=== PATIENT | female | born 1980 | race Caucasian/White ===

== ENCOUNTER 2018-11-07 18:47 | Emergency (ER) | payer SELFPAY ==
[~2018-11-07] VITALS: Ht 152.4 cm; Wt 68.0 kg
[2018-11-07 19:03] VITALS: BP 128/67
--- NOTE | 2018-11-07 19:13 | PHYS DOC ---
Past Medical History Past Medical History: No Pertinent History Past Surgical History: Tubal ligation Alcohol Use: None Drug Use: None Adult General Chief Complaint Chief Complaint: URINARY FREQUENCY HPI HPI Patient is a 38 year old [id number] female patient who presents to the ED today complaining of urinary frequency and concerned she could have an STD. She is requested to be treated for STDs. Denies any chance she is . Review of Systems Review of Systems Constitutional: Denies fever or chills [] Eyes: Denies change in visual acuity, redness, or eye pain [] HENT: Denies nasal congestion or sore throat [] Respiratory: Denies cough or shortness of breath [] Cardiovascular: No additional information not addressed in HPI [] GI: Denies abdominal pain, nausea, vomiting, bloody stools or diarrhea [] : Reports urinary frequency and concern for STDs. Denies dysuria or hematuria [] Musculoskeletal: Denies back pain or joint pain [] Integument: Denies rash or skin lesions [] Neurologic: Denies headache, focal weakness or sensory changes [] All other systems were reviewed and found to be within normal limits, except as documented in this note. Current Medications Current Medications Current Medications Medications (Trade) Dose Ordered Sig/Maria Ines Start Time Stop Time Status Last Admin Dose Admin Azithromycin (Zithromax) 1,000 mg 1X ONCE 11/07/18 19:15 11/07/18 19:16 UNV Ceftriaxone Sodium (Rocephin Im) 1 gm 1X ONCE 11/07/18 19:15 11/07/18 19:16 UNV Lidocaine HCl (Xylocaine-Mpf 1% 2ml Vial) 2 ml 1X ONCE 11/07/18 19:15 11/07/18 19:16 UNV Metronidazole (Flagyl) 2,000 mg 1X ONCE 11/07/18 19:15 11/07/18 19:16 UNV Physical Exam Physical Exam Constitutional: Well developed, well nourished, no acute distress, non-toxic appearance. [] HENT: Normocephalic, atraumatic, bilateral external ears normal, oropharynx moist, no oral exudates, nose normal. [] Eyes: PERRLA, EOMI, conjunctiva normal, no discharge. [] Neck: Normal range of motion, no tenderness, supple, no stridor. [] Cardiovascular:Heart rate regular rhythm, no murmur [] Lungs & Thorax: Bilateral breath sounds clear to auscultation [] Abdomen: Bowel sounds normal, soft, no tenderness, no masses, no pulsatile masses. [] Skin: Warm, dry, no erythema, no rash. [] Back: No tenderness, no CVA tenderness. [] Extremities: No tenderness, no cyanosis, no clubbing, ROM intact, no edema. [] Neurologic: Alert and oriented X 3, normal motor function, normal sensory function, no focal deficits noted. [] Psychologic: Affect normal, judgement normal, mood normal. [] Current Patient Data Vital Signs Vital Signs Date Time Temp Pulse Resp B/P (MAP) Pulse Ox O2 Delivery O2 Flow Rate FiO2 11/07/18 19:03 98.5 86 16 128/67 (87) 98 Room Air 98.5 Lab Values Laboratory Tests Test 11/07/18 19:00 Urine Collection Type Unknown Urine Color Yellow Urine Clarity Cloudy Urine pH 5.0 Urine Specific [place] >=1.030 Urine Protein Negative mg/dL (NEG-TRACE) Urine Glucose (UA) Negative mg/dL (NEG) Urine Ketones (Stick) Negative mg/dL (NEG) Urine Blood Negative (NEG) Urine Nitrite Negative (NEG) Urine Bilirubin Negative (NEG) Urine Urobilinogen Dipstick 0.2 mg/dL (0.2 mg/dL) Urine Leukocyte Esterase Negative (NEG) Urine RBC 0 /HPF (0-2) Urine WBC 0 /HPF (0-4) Urine Squamous Epithelial Cells Mod /LPF Urine Amorphous Sediment Present /HPF Urine Bacteria Mod /HPF (0-FEW) Urine Mucus Mod /LPF EKG EKG [] Radiology/Procedures Radiology/Procedures [] Course & Med Decision Making Course & Med Decision Making Pertinent Labs and Imaging studies reviewed. (See chart for details) This is a 12-year-old female patient presenting to the ED today with dysuria and concern she could have an STD, she is requesting treatment. She was given Rocephin , azithromycin, Flagyl. STD education provided. Discharged to home Dragon Disclaimer Dragon Disclaimer This electronic medical record was generated, in whole or in part, using a voice recognition dictation system. Departure Departure Impression: Primary Impression: Concern about STD in female without diagnosis Disposition: HOME, SELF-CARE Condition: STABLE Referrals: NO PCP (PCP) Follow-up with your doctor in 1-2 weeks Patient Instructions: Dysuria-Brief, Sexually Transmitted Diseases-SportsMed Additional Instructions: You were treated for sexually transmitted diseases in the emergency room. Do not have any intercourse for one week. Use protection at all times. Let your partners know you were treated for STDs and ask them to seek treatment too. NICA ACEVEDO APRN Nov 07, 2018 19:13
[2018-11-07 19:15] LABS: BILIRUBIN,URINE NEGATIVE (NEG); CLARITY,URINE CLOUDY; COLOR,URINE YELLOW; NITRITE,URINE NEGATIVE (NEG); PROTEIN,URINE NEGATIVE (NEG-TRACE); UROBILINOGEN,URINE 0.2 mg/dL (0.2 mg/dL)
[2018-11-07] MEDS ORDERED: metroNIDAZOLE 500 MG TABLET PO ONE (19:15)
[2018-11-07] MEDS ORDERED: AZITHROMYCIN 250 MG TABLET. PO ONE (19:15)
[2018-11-07] MEDS ORDERED: LIDOCAINE 1% PF 2 ML VIAL. INJ ONE (19:15)
[2018-11-07] MEDS ORDERED: cefTRIAXone IM 250 MG VIAL IM ONE (19:15)
[2018-11-07] MEDS ORDERED: cefTRIAXone IM 1 GM VIAL IM ONE (19:15)
[2018-11-07 19:22] LABS: AMORPHOUS SEDIMENT,UR PRESENT /HPF; BACTERIA,URINE MOD /HPF (0-FEW); RBC,URINE 0 /HPF (0-2); SQUAMOUS EPITHELIAL CELL,UR MOD /LPF; WBC,URINE 0 /HPF (0-4)
[2018-11-07] MEDS ORDERED: LIDOCAINE 1% PF 2 ML VIAL. ONE (19:30)
[2018-11-07] MEDS ORDERED: cefTRIAXone IV Push 1 GM VIAL. IVP ONE (19:30)
== END 2018-11-07 19:43 | disposition home or self-care (01) ==
LOC: ER 18:47
DX: R35.0 Frequency of micturition (principal); Z20.2 Contact with and (suspected) exposure to infections with a predominantly sexual mode of transmission; Z98.51 Tubal ligation status
CPT/HCPCS: 81001; 87491; 87591; 96372; 99284; J0696; Q0144

== ENCOUNTER 2019-02-18 10:30 | Emergency (ER) | payer SELFPAY ==
[~2019-02-18] VITALS: Ht 152.4 cm; Wt 73.7 kg
[2019-02-18 10:46] VITALS: BP 122/76
[2019-02-18 10:57] LABS: BILIRUBIN,URINE NEGATIVE (NEG); CLARITY,URINE CLEAR; COLOR,URINE YELLOW; NITRITE,URINE NEGATIVE (NEG); PH,URINE 7.5; PROTEIN,URINE NEGATIVE (NEG-TRACE); UROBILINOGEN,URINE 0.2 mg/dL (0.2 mg/dL)
[2019-02-18 11:05] LABS: RBC,URINE 0 /HPF (0-2); SQUAMOUS EPITHELIAL CELL,UR MOD /LPF
[2019-02-18 11:06] LABS: BACTERIA,URINE FEW /HPF (0-FEW)
[2019-02-18] MEDS ORDERED: PHEN100T82 PO (11:41)
[2019-02-18] MEDS ORDERED: CEPH500C PO (11:41)
--- NOTE | 2019-02-18 11:41 | PHYS DOC ---
Past Medical History Past Medical History: No Pertinent History Past Surgical History: Appendectomy, Tubal ligation Alcohol Use: None Drug Use: Marijuana Adult General Chief Complaint Chief Complaint: URINARY FREQUENCY HPI HPI Patient is a 38 year old female who presents to the emergency Department today with complaints of increased urinary frequency and pain with urination for the last 2 days. She denies any abdominal pain, lower back pain, nausea, vomiting, diarrhea, or fever. Patient states she has had symptoms like this with previous urinary tract infections. She denies any hematuria or irregular vaginal discharge. Patient currently denies any pain. Review of Systems Review of Systems Constitutional: Denies fever or chills [] GI: Denies abdominal pain, nausea, vomiting, or diarrhea [] : See history of present illness Musculoskeletal: Denies back pain Integument: Denies rash or skin lesions [] Neurologic: Denies headache Complete systems were reviewed and found to be within normal limits, except as documented in this note. Allergies Allergies Allergies Coded Allergies Type Severity Reaction Last Updated Verified No Known Drug Allergies 11/07/18 No Physical Exam Physical Exam Constitutional: Well developed, well nourished, no acute distress, non-toxic appearance. [] HENT: Normocephalic, atraumatic, bilateral external ears normal, nose normal. [] Eyes: PERRLA, EOMI, conjunctiva normal, no discharge. [] Neck: Normal range of motion, no stridor. [] Lungs & Thorax: Respirations even and unlabored, no retractions, no respiratory distress Abdomen: soft, no tenderness, no masses, no pulsatile masses. [] Skin: Warm, dry, no erythema, no rash. [] Back: No CVA tenderness. [] Extremities: No cyanosis, no clubbing, ROM intact, no edema. [] Neurologic: Alert and oriented X 3, no focal deficits noted. [] Psychologic: Affect normal, judgement normal, mood normal. [] Current Patient Data Vital Signs Vital Signs Date Time Temp Pulse Resp B/P (MAP) Pulse Ox O2 Delivery O2 Flow Rate FiO2 02/18/19 10:46 98.4 80 16 122/76 (91) 99 Room Air 98.4 Lab Values Laboratory Tests Test 02/18/19 10:34 Urine Collection Type Unknown Urine Color Yellow Urine Clarity Clear Urine pH 7.5 Urine Specific [place] 1.015 Urine Protein Negative mg/dL (NEG-TRACE) Urine Glucose (UA) Negative mg/dL (NEG) Urine Ketones (Stick) Negative mg/dL (NEG) Urine Blood Negative (NEG) Urine Nitrite Negative (NEG) Urine Bilirubin Negative (NEG) Urine Urobilinogen Dipstick 0.2 mg/dL (0.2 mg/dL) Urine Leukocyte Esterase Small (NEG) Urine RBC 0 /HPF (0-2) Urine WBC 5-10 /HPF (0-4) Urine Squamous Epithelial Cells Mod /LPF Urine Bacteria Few /HPF (0-FEW) Urine Mucus Slight /LPF EKG EKG [] Radiology/Procedures Radiology/Procedures [] Course & Med Decision Making Course & Med Decision Making Pertinent Labs and Imaging studies reviewed. (See chart for details) [] Dragon Disclaimer Dragon Disclaimer This electronic medical record was generated, in whole or in part, using a voice recognition dictation system. Departure Departure Impression: Primary Impression: UTI (urinary tract infection) Additional Impression: Dysuria Disposition: HOME, SELF-CARE Condition: STABLE Referrals: NO PCP (PCP) Patient Instructions: Urinary Tract Infection, [id number] Additional Instructions: Fill prescription(s) and use as directed. Avoid bladder irritants such as caffeine, carbonation, and spicy foods. Increase clear fluids. Follow up with your primary care doctor if symptoms persist, return to the ER if symptoms worsen. Scripts Phenazopyridine Hcl (PYRIDIUM) 100 Mg Tablet 100 MG PO TID PRN for BLADDER SPASM for 4 Days, #12 TAB 0 Refills Prov: VINI IRIZARRY AERONAUTICAL INSPECTOR 02/18/19 Cephalexin (CEPHALEXIN) 500 Mg Capsule 1 CAP PO BID for 7 Days, #14 CAP 0 Refills Prov: VINI IRIZARRY AERONAUTICAL INSPECTOR 02/18/19 Problem Qualifiers Primary Impression: UTI (urinary tract infection) Urinary tract infection type: site unspecified Hematuria presence: without hematuria Qualified Codes: N39.0 - Urinary tract infection, site not specified VINI IRIZARRY AERONAUTICAL INSPECTOR Feb 18, 2019 11:41
== END 2019-02-18 11:57 | disposition home or self-care (01) ==
LOC: ER 10:30
DX: N39.0 Urinary tract infection, site not specified (principal); Z90.89 Acquired absence of other organs; Z98.51 Tubal ligation status
CPT/HCPCS: 81001; 87086; 99284

== ENCOUNTER 2019-06-09 19:34 | Emergency (ER) | payer SELFPAY ==
[~2019-06-09 19:34] MED LIST: CEPH500C PO; PHEN100T82 PO
== END 2019-06-09 19:42 | disposition left against medical advice (07) ==
LOC: ER 19:34
DX: R05 Cough (principal); Z53.21 Procedure and treatment not carried out due to patient leaving prior to being seen by health care provider

== ENCOUNTER 2019-06-12 14:25 | Emergency (ER) | payer SELFPAY ==
[~2019-06-12] VITALS: Ht 152.4 cm; Wt 73.5 kg
[2019-06-12] MEDS: BENZONATATE 100 MG CAPSULE. PO ONE (15:52)
[2019-06-12] MEDS: predniSONE 10 MG TABLET PO ONE (15:53)
[2019-06-12 15:56] LABS: INFLUENZA A PATIENT NEGATIVE (NEGATIVE); INFLUENZA B PATIENT NEGATIVE (NEGATIVE)
--- NOTE | 2019-06-12 16:00 | RAD ---
CHEST PA LATERAL History: Cough Comparison: None. Findings: Frontal and lateral views of chest were obtained. The cardiomediastinal silhouette is normal. Pulmonary vasculature is normal. Calcified granuloma or calcific plaque involving the right upper lung field noted. No infiltrate. No pleural effusion or pneumothorax is seen. There is no acute bone abnormality. IMPRESSION: No acute cardiopulmonary process. Electronically signed by: Mele Medina MD (06/12/2019 3:57 PM) [facility]
[2019-06-12 16:15] VITALS: BP 118/77
[2019-06-12] MEDS: IPRATRPIUM/ALBUTEROL 0.5/2.5MG 3 ML NEBU. NEB ONE (16:23)
[2019-06-12] MEDS ORDERED: BENZ100C PO (16:47)
[2019-06-12] MEDS ORDERED: ALBU2.5V8 IH (16:47)
[2019-06-12] MEDS ORDERED: PRED50TA PO (16:47)
--- NOTE | 2019-06-12 16:47 | PHYS DOC ---
Past Medical History Past Medical History: No Pertinent History Past Surgical History: Appendectomy, Tubal ligation Alcohol Use: None Drug Use: Marijuana Adult General Chief Complaint Chief Complaint: SHORTNESS OF BREATH HPI HPI Patient is a 38 year old female with no significant medical history who presents to the ED today complaining of subjective fevers, body aches, chills, headaches, shortness of breath, symptoms began 4 days ago. She reports she was in the ED on Sunday and decided not to be seen Review of Systems Review of Systems Constitutional: Reports body aches chills and fever Eyes: Denies change in visual acuity, redness, or eye pain [] HENT: Denies nasal congestion or sore throat [] Respiratory: Reports cough and shortness of breath [] Cardiovascular: No additional information not addressed in HPI [] GI: Denies abdominal pain, nausea, vomiting, bloody stools or diarrhea [] : Denies dysuria or hematuria [] Musculoskeletal: Denies back pain or joint pain [] Integument: Denies rash or skin lesions [] Neurologic: Denies headache, focal weakness or sensory changes [] All other systems were reviewed and found to be within normal limits, except as documented in this note. Current Medications Current Medications Current Medications Medications (Trade) Dose Ordered Sig/Maria Ines Start Time Stop Time Status Last Admin Dose Admin Albuterol/ Ipratropium (Duoneb) 3 ml 1X ONCE 06/12/19 15:30 06/12/19 15:35 DC 06/12/19 16:23 3 ML Benzonatate (Tessalon Perle) 100 mg 1X ONCE 06/12/19 15:30 06/12/19 15:35 DC 06/12/19 15:52 100 MG Prednisone (Prednisone) 50 mg 1X ONCE 06/12/19 15:30 06/12/19 15:35 DC 06/12/19 15:53 50 MG Allergies Allergies Allergies Coded Allergies Type Severity Reaction Last Updated Verified No Known Drug Allergies 11/07/18 No Physical Exam Physical Exam Constitutional: Well developed, well nourished, no acute distress, non-toxic appearance. [] HENT: Normocephalic, atraumatic, bilateral external ears normal, oropharynx moist, no oral exudates, nose normal. [] Eyes: PERRLA, EOMI, conjunctiva normal, no discharge. [] Neck: Normal range of motion, no tenderness, supple, no stridor. [] Cardiovascular:Heart rate regular rhythm, no murmur [] Lungs & Thorax: Bilateral breath sounds clear to auscultation [] Abdomen: Bowel sounds normal, soft, no tenderness, no masses, no pulsatile masses. [] Skin: Warm, dry, no erythema, no rash. [] Back: No tenderness, no CVA tenderness. [] Extremities: No tenderness, no cyanosis, no clubbing, ROM intact, no edema. [] Neurologic: Alert and oriented X 3, normal motor function, normal sensory function, no focal deficits noted. [] Psychologic: Affect normal, judgement normal, mood normal. [] Current Patient Data Vital Signs Vital Signs Date Time Temp Pulse Resp B/P (MAP) Pulse Ox O2 Delivery O2 Flow Rate FiO2 06/12/19 16:23 97 Room Air 06/12/19 15:25 98.5 98 16 154/83 (106) 98.5 Lab Values Laboratory Tests Test 06/12/19 15:23 Influenza Type A Antigen Negative (NEGATIVE) Influenza Type B Antigen Negative (NEGATIVE) EKG EKG [] Radiology/Procedures Radiology/Procedures []PROCEDURE: CHEST PA & LATERAL CHEST PA LATERAL History: Cough Comparison: None. Findings: Frontal and lateral views of chest were obtained. The cardiomediastinal silhouette is normal. Pulmonary vasculature is normal. Calcified granuloma or calcific plaque involving the right upper lung field noted. No infiltrate. No pleural effusion or pneumothorax is seen. There is no acute bone abnormality. IMPRESSION: No acute cardiopulmonary process. Electronically signed by: Jojo Kiser MD (06/12/2019 3:57 PM) [facility] DICTATED and SIGNED BY: JOJO KISER MD DATE: 06/12/19 1557 Course & Med Decision Making Course & Med Decision Making Pertinent Labs and Imaging studies reviewed. (See chart for details) This is a 38-year-old. Patient presenting to the ED today with cough, body aches, chills, shortness of breath, symptoms began on Sunday. Patient is afebrile, lungs are clear, O2 sats of 97% on room air. Influenza test is negative. Symptoms are likely viral. Supportive care measures recommended. Discharged to home. Dragon Disclaimer Dragon Disclaimer This electronic medical record was generated, in whole or in part, using a voice recognition dictation system. Departure Departure Impression: Primary Impression: Acute bronchitis Additional Impression: Viral illness Disposition: 01 HOME, SELF-CARE Condition: STABLE Referrals: NO PCP (PCP) follow up with a doctor from the list provided in 1 week Patient Instructions: Acute Bronchitis, [id number], Upper Respiratory Infection, Adult, [id number] Additional Instructions: You were evaluated in the emergency room with viral type symptoms. Use the prescribed medications as ordered. Follow-up with your own doctor in 1-2 weeks. Scripts Benzonatate (TESSALON PERLE) 100 Mg Capsule 1 CAP PO TID, #30 CAP Prov: NICA ACEVEDO APRN 06/12/19 Albuterol Sulfate (Proair Hfa) 8.5 Gm Hfa.aer.ad 2 PUFF IH PRN Q4-6HRS PRN for wheezing for 21 Days, #1 INHALER 0 Refills Prov: NICA ACEVEDO APRN 06/12/19 Prednisone (PREDNISONE) 50 Mg Tablet 1 TAB PO DAILY, #5 TAB Prov: NICA ACEVEDO APRN 06/12/19 Problem Qualifiers Primary Impression: Acute bronchitis Bronchitis organism: unspecified organism Qualified Codes: J20.9 - Acute bronchitis, unspecified NICA ACEVEDO APRN Jun 12, 2019 16:47
== END 2019-06-12 16:55 | disposition home or self-care (01) ==
LOC: ER 14:25
DX: J20.9 Acute bronchitis, unspecified (principal); R05 Cough; B34.9 Viral infection, unspecified; F12.90 Cannabis use, unspecified, uncomplicated; F10.10 Alcohol abuse, uncomplicated; Z98.51 Tubal ligation status; Z90.89 Acquired absence of other organs
CPT/HCPCS: 71046; 87804; 94640; 99285; J7512; J7620

== ENCOUNTER 2020-10-13 07:44 | Emergency (ER) | payer MEDICAID ==
[~2020-10-13] VITALS: Ht 152.4 cm; Wt 73.6 kg
[~2020-10-13 07:44] MED LIST changes: +ALBU2.5V8 IH; +BENZ100C PO; +PRED50TA PO
[2020-10-13 08:00] VITALS: BP 120/64
[2020-10-13] MEDS ORDERED: FLUORESCEIN OPHTH TEST STRIP. ONE (08:12)
[2020-10-13] MEDS ORDERED: TETRACAINE 0.5% OPHTH SOLUTION 4ML BOTTLE. ONE (08:12)
[2020-10-13] MEDS ORDERED: TOBR5DRO6 OD (08:28)
[2020-10-13] MEDS ORDERED: GENT3.5O9 OD (08:28)
--- NOTE | 2020-10-13 08:28 | PHYS DOC ---
Past Medical History Past Medical History: No Pertinent History Past Surgical History: Appendectomy, Tubal ligation Smoking Status: Never Smoker Alcohol Use: None Drug Use: Marijuana General Adult EDM: Chief Complaint: EYE PROBLEMS HPI: HPI: Patient is a 40 year old female who presented to ER for evaluation of right eye pain. Patient said she was accidentally hit by her brother's elbow yesterday while they were in the kitchen. Patient complained of eye pain with light, denies any pain in the face area. Patient is not up-to-date her vaccination status. Review of Systems: Review of Systems: Constitutional: Denies fever or chills. [] Eyes: Positive for right eye pain HENT: Denies nasal congestion or sore throat. [] Respiratory: Denies cough or shortness of breath. [] Cardiovascular: Denies chest pain or edema. [] GI: Denies abdominal pain, nausea, vomiting, bloody stools or diarrhea. [] : Denies dysuria. [] Musculoskeletal: Denies back pain or joint pain. [] Integument: Denies rash. [] Neurologic: Denies headache, focal weakness or sensory changes. [] Endocrine: Denies polyuria or polydipsia. [] Lymphatic: Denies swollen glands. [] Psychiatric: Denies depression or anxiety. [] Heart Score: C/O Chest Pain: N/A Risk Factors: Risk Factors: DM, Current or recent (<one month) smoker, HTN, HLP, family history of CAD, obesity. Risk Scores: Score 0 - 3: 2.5% MACE over next 6 weeks - Discharge Home Score 4 - 6: 20.3% MACE over next 6 weeks - Admit for Clinical Observation Score 7 - 10: 72.7% MACE over next 6 weeks - Early Invasive Strategies Current Medications: Current Medications Medications (Trade) Dose Ordered Sig/Maria Ines Start Time Stop Time Status Last Admin Dose Admin Diphtheria/ Tetanus/Acell Pertussis (ADACEL TDap SYRINGE) 0.5 ml ONCE ONCE 10/13/20 08:30 10/13/20 08:31 UNV Fluorescein Sodium (Ful-Christi) 1 strip STK-MED ONCE 10/13/20 08:12 10/13/20 08:13 DC Tetracaine HCl (Tetracaine) 40 drop STK-MED ONCE 10/13/20 08:12 10/13/20 08:13 DC Allergies: Allergies: Allergies Coded Allergies Type Severity Reaction Last Updated Verified No Known Drug Allergies 11/07/18 No Physical Exam: PE: Constitutional: Well developed, well nourished, no acute distress, non-toxic appearance. [] HENT: Normocephalic, atraumatic, bilateral external ears normal, oropharynx moist, no oral exudates, nose normal. [] Eyes: PERRLA, EOMI, right conjunctival injection, right cornea with abrasion at the 11 and 12 o'clock position with dye uptake negative Chasidy's test. Skin: Warm, dry, no erythema, no rash. [] Back: No tenderness, no CVA tenderness. [] Extremities: No tenderness, no cyanosis, no clubbing, ROM intact, no edema. [] Neurologic: Alert and oriented X 3, normal motor function, normal sensory function, no focal deficits noted. [] Psychologic: Affect normal, judgement normal, mood normal. [] Current Patient Data: Vital Signs: Vital Signs Date Time Temp Pulse Resp B/P (MAP) Pulse Ox O2 Delivery O2 Flow Rate FiO2 10/13/20 08:00 98.3 63 16 120/64 (82) 97 Room Air 98.3 EKG: EKG: [] Radiology/Procedures: Radiology/Procedures: [] Course & Med Decision Making: Course & Med Decision Making Pertinent Labs and Imaging studies reviewed. (See chart for details) Patient is a 40-year-old female who presented to ER for evaluation of right eye pain. Patient had right corneal abrasion, no evidence of open globe injury. Patient was discharged home with prescription for antibiotic eyedrops and antibiotic ointment. Patient was given tetanus vaccination booster. Patient will be discharged home, she will need to follow-up with eye doctor for reevaluation in a couple days. Patient is amenable to plan of care for [facility] Disclaimer: Jose Disclaimer: This electronic medical record was generated, in whole or in part, using a voice recognition dictation system. Departure Departure Impression: Primary Impression: Right corneal abrasion Disposition: 01 HOME / SELF CARE / HOMELESS Condition: IMPROVED Referrals: NO PCP (PCP) Please call this EYE DOCTOR BELOW FOR FOLLOW UP IN 1-[address] Juan Antonio Prasad [address] [id number] Patient Instructions: Eye - Corneal Abrasion, VIS, Tetanus, Diphtheria (Td); Tetanus, Diphtheria, Pertussis (Tdap) - CDC Additional Instructions: Thank you for visiting our Emergency Department. We appreciate you trusting us with your care. If any additional problems come up don't hesitate to return to visit us. Please follow up with your primary care provider so they can plan additional care if needed and know about the problem that you had. If symptoms worsen come back to the Emergency Department. Any concerning symptoms that start such as chest pain, shortness of air, weakness or numbness on one side of the body, running high fevers or any other concerning symptoms return to the ER. Scripts Gentamicin Sulfate (GENTAMICIN SULFATE 0.3% OPHTH OINT) 3.5 Gm Oint...g. 1 MAGNOLIA OD TID for 7 Days, #1 EACH Prov: ADDIS GARCIA DO 10/13/20 Tobramycin Ophth (TOBRAMYCIN OPHTH DROPS) 5 Ml Drops 2 DROP OD QID for 7 Days, #5 ML 0 Refills Prov: ADDIS GARCIA DO 10/13/20 ADDIS GARCIA DO October 13, 2020 08:28
[2020-10-13] MEDS ORDERED: DIPH,PERTUSS(ACELL),TET VAC/PF 0.5 ML SYRINGE. VAX IM ONE (08:30)
== END 2020-10-13 08:33 | disposition home or self-care (01) ==
LOC: ER 07:44
DX: S05.01XA Injury of conjunctiva and corneal abrasion without foreign body, right eye, initial encounter (principal); W51.XXXA Accidental striking against or bumped into by another person, initial encounter; Y93.89 Activity, other specified; Y92.89 Other specified places as the place of occurrence of the external cause; Y99.8 Other external cause status
CPT/HCPCS: 90471; 90715; 99283

== ENCOUNTER 2020-11-02 14:05 | Emergency (ER) | payer MEDICAID ==
[~2020-11-02] VITALS: Ht 152.4 cm; Wt 73.1 kg
[~2020-11-02 14:05] MED LIST changes: +GENT3.5O9 OD; +TOBR5DRO6 OD
[2020-11-02] MEDS ORDERED: FAMOTIDINE 20 MG/2 ML VIAL IVP ONE (14:30)
[2020-11-02] MEDS ORDERED: IV NORMAL SALINE 1000ML BAG 1,000 ML IV SCH (14:30)
[2020-11-02] MEDS ORDERED: ONDANSETRON PF 4 MG/2 ML VIAL. IVP ONE (14:30)
--- NOTE | 2020-11-02 14:35 | PHYS DOC ---
Past Medical History Past Medical History: No Pertinent History Past Surgical History: Appendectomy, Tubal ligation Smoking Status: Never Smoker Alcohol Use: None Drug Use: Marijuana General Adult EDM: Chief Complaint: POST-OP PROBLEM HPI: HPI: Patient is a 40 year old female who presents with nausea, vomiting, diarrhea, shortness of breath, palpitations with exertion and belching and a pressure type epigastric pain after having a cholecystectomy on October 28 at [facility]. She states she does not remember the doctor's name. She denies any pain just discomfort. She has a history of an appendectomy. Review of Systems: Review of Systems: Constitutional: Denies fever or chills. [] Eyes: Denies change in visual acuity. [] HENT: Denies nasal congestion or sore throat. [] Respiratory: Denies cough or +shortness of breath with exertion. [] Cardiovascular: Denies chest pain or edema. +Palpitations[] GI: Denies abdominal pain, +nausea, +vomiting, denies bloody stools or +diarrhea. [] : Denies dysuria. [] Musculoskeletal: Denies back pain or joint pain. [] Integument: Denies rash. [] Neurologic: Denies headache, focal weakness or sensory changes. [] Endocrine: Denies polyuria or polydipsia. [] Lymphatic: Denies swollen glands. [] Psychiatric: Denies depression or anxiety. [] Heart Score: C/O Chest Pain: No Risk Factors: Risk Factors: DM, Current or recent (<one month) smoker, HTN, HLP, family history of CAD, obesity. Risk Scores: Score 0 - 3: 2.5% MACE over next 6 weeks - Discharge Home Score 4 - 6: 20.3% MACE over next 6 weeks - Admit for Clinical Observation Score 7 - 10: 72.7% MACE over next 6 weeks - Early Invasive Strategies Allergies: Allergies: Allergies Coded Allergies Type Severity Reaction Last Updated Verified No Known Drug Allergies 11/07/18 No Physical Exam: PE: Constitutional: Well developed, well nourished, no acute distress, non-toxic appearance. [] HENT: Normocephalic, atraumatic, bilateral external ears normal, oropharynx moist, no oral exudates, nose normal. [] Eyes: PERRLA, EOMI, conjunctiva normal, no discharge. [] Neck: Normal range of motion, no tenderness, supple, no stridor. [] Cardiovascular:Heart rate regular rhythm, no murmur [] Lungs & Thorax: Bilateral breath sounds clear to auscultation [] Abdomen: Bowel sounds normal, soft, no tenderness, no masses, no pulsatile masses. [] Skin: Warm, dry, no erythema, no rash. 4 glued incisions to abdomen[] Back: No tenderness, no CVA tenderness. [] Extremities: No tenderness, no cyanosis, no clubbing, ROM intact, no edema. [] Neurologic: Alert and oriented X 3, normal motor function, normal sensory function, no focal deficits noted. [] Psychologic: Affect normal, judgement normal, mood normal. [] EKG: EK and read by Dr. Young as sinus rhythm with ventricular premature complexes. No STEMI. Radiology/Procedures: Radiology/Procedures: [] Impression: [facility] [address] [place], [place] [id number] IMAGING REPORT Signed PATIENT: LETY FERNANDEZ ACCOUNT: [id number] : 1980 LOCATION: ER AGE: 40 SEX: F EXAM STATUS: REG ER ORD. PHYSICIAN: RAMIRO DELA CRUZ APRN REASON: post operative pain, vomiting and diarrhea PROCEDURE: CT ANGIO CHEST W ABD PEL W/ EXAM: CT CHEST, ABDOMEN, AND PELVIS WITH CONTRAST INDICATION: Postoperative pain after cholecystectomy, shortness of breath, vomiting and diarrhea COMPARISON: None TECHNIQUE: Helical CT imaging performed of the chest, abdomen and pelvis after administration of 100 mL Omnipaque 350 intravenous contrast. Chest port was performed in angiographic phase per PE protocol with coronal and sagittal MIP reformats. Sagittal and coronal reformats of the abdomen and pelvis were obtained. One or more of the following individualized dose reduction techniques were utilized for this examination: 1. Automated exposure control 2. Adjustment of the mA and/or kV according to patient size 3. Use of iterative reconstruction technique. FINDINGS: CHEST: Pulmonary arteries: Contrast bolus is adequate. There is no acute pulmonary embolism. Thyroid gland and thoracic inlet: Normal. Heart and great vessels: Heart is normal in size. No pericardial effusion. The thoracic aorta is normal. Mediastinum and lorenzo: No lymphadenopathy. Lungs and pleura: There is a 4 mm subpleural nodule in the left apex. The lungs are otherwise clear. No pleural effusion. Chest wall and axillae: No axillary lymphadenopathy. Bones: There is a sclerotic lesion in the right anterior second rib, likely a bone island. ABDOMEN AND PELVIS: Liver: Normal. Gallbladder/Biliary Tree: Gallbladder surgically absent. There is trace fluid in the gallbladder fossa, likely postoperative. No fluid collection. The bile ducts are normal. Pancreas: Normal. Spleen: Normal. Adrenal Glands: Normal. Kidneys/Ureters/Bladder: Kidneys are normal size and enhancement. There is a subcentimeter hypodensity in inferior right renal pole, too small to characterize. No hydronephrosis. Ureters are normal. The bladder is decompressed. Reproductive Organs: Uterus is anteverted. There is a dominant right ovarian follicle. Stomach, small bowel, and colon: The stomach and small bowel are normal. Colon is normal. The appendix is not visualized but there is no inflammation in the right lower quadrant. Vasculature: Abdominal aorta is normal in caliber. Lymph Nodes: There is no lymphadenopathy. Peritoneum and retroperitoneum: No ascites or free air. Bones: No acute osseous abnormality in the abdomen and pelvis. Probable bone island in the right posterior acetabulum. IMPRESSION: 1. No acute pulmonary embolism or other acute abnormality in the chest. 2. Surgical changes of cholecystectomy. No evidence of complication or other acute abnormality in the abdomen and pelvis. 3. 4 mm nodule in the left apex. In a low risk patient, no follow-up indicated. In a high risk patient, optional twelve-month follow-up CT could be obtained to ensure stability per Fleischner Society guidelines. Electronically signed by: Josephine Jj MD (11/02/2020 3:22 PM) [id number] DICTATED and SIGNED BY: JOSEPHINE JJ MD DATE: 11/02/20 [id number] 0 Course & Med Decision Making: Course & Med Decision Making Pertinent Labs and Imaging studies reviewed. (See chart for details) See HPI. Alert and oriented x4. Ambulatory with a steady gait. Speaks in full clear sentences. Surgical laparoscopic incisions are glued together and there is no signs of infection. There is no drainage from the sites. Abdomen is soft and nontender. Skin pink warm and dry. Afebrile. Lungs are clear to auscultation all lobes. States she has been having Sprite and drinking broths. Jose Disclaimer: Jose Disclaimer: This electronic medical record was generated, in whole or in part, using a voice recognition dictation system. Departure Departure Impression: Primary Impression: Post-operative nausea and vomiting Additional Impressions: Palpitation Exertional dyspnea Disposition: HOME / SELF CARE / HOMELESS Condition: STABLE Referrals: NO PCP (PCP) Patient Instructions: Nausea and Vomiting, Palpitations Additional Instructions: Follow-up with your surgeon as soon as possible. Drink plenty of fluids. Take medication as prescribed. Scripts Ondansetron (ONDANSETRON ODT) 4 Mg Tab.rapdis 1 TAB PO PRN Q6-8HRS, #16 TAB Prov: RAMIRO DELA CRUZ APRN 11/02/20 RAMIRO DELA CRUZ APRN Nov 02, 2020 14:35
--- NOTE | 2020-11-02 14:40 | EKG ---
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
[2020-11-02 14:41] LABS: BASO % 0 % (0-3); EOS # 0.6 x10^3/uL (0.0-0.7); EOS % 5 % (0-3); HEMATOCRIT 42.9 % (36.0-47.0); HEMOGLOBIN 14.5 g/dL (12.0-15.5); LYMPH # 1.3 x10^3/uL (1.0-4.8); LYMPH % 12 % (24-48); MEAN CORPUSCULAR HEMOGLOBIN 30 pg (25-35); MEAN CORPUSCULAR HGB CONC 34 g/dL (31-37); MEAN CORPUSCULAR VOLUME 90 fL (79-100); MONO # 0.6 x10^3/uL (0.0-1.1); MONO % 5 % (0-9); NEUT # 8.9 x10^3/uL (1.8-7.7); NEUT % 78 % (31-73); PLATELET COUNT 342 x10^3/uL (140-400); RED BLOOD COUNT 4.78 x10^6/uL (3.50-5.40); RED CELL DISTRIBUTION WIDTH 13.4 % (11.5-14.5); WHITE BLOOD COUNT 11.4 x10^3/uL (4.0-11.0)
[2020-11-02 14:51] LABS: CALCIUM 9.9 mg/dL (8.5-10.1); CREATININE 0.8 mg/dL (0.6-1.0); GFR 78.7; POTASSIUM 3.7 mmol/L (3.5-5.1)
[2020-11-02 14:56] LABS: ALBUMIN 4.3 g/dL (3.4-5.0); ALBUMIN/GLOBULIN RATIO 1.1 (1.0-1.7); TOTAL BILIRUBIN 1.2 mg/dL (0.2-1.0); TOTAL PROTEIN 8.2 g/dL (6.4-8.2)
[2020-11-02] MEDS ORDERED: IOHEXOL 350 MG/ML 100 ML VIAL. IV ONE (15:00)
[2020-11-02] MEDS ORDERED: CONTRAST GIVEN. MC PRN (15:00)
[2020-11-02 15:01] LABS: BILIRUBIN,URINE LARGE (NEG); CLARITY,URINE CLOUDY; COLOR,URINE AMBER; NITRITE,URINE NEGATIVE (NEG); PROTEIN,URINE 100 mg/dL (NEG-TRACE)
[2020-11-02 15:11] LABS: HYALINE CASTS, URINE FEW /HPF
[2020-11-02 15:12] LABS: BACTERIA,URINE FEW /HPF (0-FEW)
--- NOTE | 2020-11-02 15:25 | RAD ---
EXAM: CT CHEST, ABDOMEN, AND PELVIS WITH CONTRAST INDICATION: Postoperative pain after cholecystectomy, shortness of breath, vomiting and diarrhea COMPARISON: None TECHNIQUE: Helical CT imaging performed of the chest, abdomen and pelvis after administration of 100 mL Omnipaque 350 intravenous contrast. Chest port was performed in angiographic phase per PE protocol with coronal and sagittal MIP reformats. Sagittal and coronal reformats of the abdomen and pelvis we re obtained. One or more of the following individualized dose reduction techniques were utilized for this examinat ion: 1. Automated exposure control 2. Adjustment of the mA and/or kV according to patient size 3. Use of iterative reconstruction technique. FINDINGS: CHEST: Pulmonary arteries: Contrast bolus is adequate. There is no acute pulmonary embolism. Thyroid gland and thoracic inlet: Normal. Heart and great vessels: Heart is normal in size. No pericardial effusion. The thoracic aorta is norm al. Mediastinum and lorenzo: No lymphadenopathy. Lungs and pleura: There is a 4 mm subpleural nodule in the left apex. The lungs are otherwise clear. No pleural effusion. Chest wall and axillae: No axillary lymphadenopathy. Bones: There is a sclerotic lesion in the right anterior second rib, likely a bone island. ABDOMEN AND PELVIS: Liver: Normal. Gallbladder/Biliary Tree: Gallbladder surgically absent. There is trace fluid in the gallbladder dontrell a, likely postoperative. No fluid collection. The bile ducts are normal. Pancreas: Normal. Spleen: Normal. Adrenal Glands: Normal. Kidneys/Ureters/Bladder: Kidneys are normal size and enhancement. There is a subcentimeter hypodensit y in inferior right renal pole, too small to characterize. No hydronephrosis. Ureters are normal. The bladder is decompressed. Reproductive Organs: Uterus is anteverted. There is a dominant right ovarian follicle. Stomach, small bowel, and colon: The stomach and small bowel are normal. Colon is normal. The appendi x is not visualized but there is no inflammation in the right lower quadrant. Vasculature: Abdominal aorta is normal in caliber. Lymph Nodes: There is no lymphadenopathy. Peritoneum and retroperitoneum: No ascites or free air. Bones: No acute osseous abnormality in the abdomen and pelvis. Probable bone island in the right post erior acetabulum. IMPRESSION: 1. No acute pulmonary embolism or other acute abnormality in the chest. 2. Surgical changes of cholecystectomy. No evidence of complication or other acute abnormality in the abdomen and pelvis. 3. 4 mm nodule in the left apex. In a low risk patient, no follow-up indicated. In a high risk patien t, optional twelve-month follow-up CT could be obtained to ensure stability per Fleischner Society gu idelines. Electronically signed by: Josephine Jj MD (11/02/2020 3:22 PM) [id number]
[2020-11-02] MEDS ORDERED: IV NORMAL SALINE 1000ML BAG 1,000 ML IV ONE (15:30)
[2020-11-02] MEDS ORDERED: ONDA4TAB12 PO (15:31)
[2020-11-02 16:05] VITALS: BP 144/70
== END 2020-11-02 16:40 | disposition home or self-care (01) ==
LOC: ER 14:05
DX: T81.89XA Other complications of procedures, not elsewhere classified, initial encounter (principal); R11.2 Nausea with vomiting, unspecified; R00.2 Palpitations; R06.02 Shortness of breath; Z90.89 Acquired absence of other organs; Z98.51 Tubal ligation status; Y83.8 Other surgical procedures as the cause of abnormal reaction of the patient, or of later complication, without mention of misadventure at the time of the procedure; Y92.89 Other specified places as the place of occurrence of the external cause
CPT/HCPCS: 36415; 71275; 74177; 80053; 81001; 81025; 83690; 83880; 84484; 85025; 93005; 96361; 96374; 96375; 99285; J2405; J3490; J7030; Q9967

== ENCOUNTER 2021-10-18 11:21 | Emergency (ER) | payer MEDICAID ==
[~2021-10-18] VITALS: Ht 152.4 cm; Wt 70.5 kg
[~2021-10-18 11:21] MED LIST changes: +ONDA4TAB12 PO
[2021-10-18 11:37] VITALS: BP 132/60
[2021-10-18] MEDS ORDERED: POLY10DR3 EACHEYE (11:51)
--- NOTE | 2021-10-18 11:52 | PHYS DOC ---
Past Medical History Past Medical History: No Pertinent History Past Surgical History: Appendectomy, Cholecystectomy, Tubal ligation Smoking Status: Never Smoker Alcohol Use: None Drug Use: Marijuana General Adult EDM: Chief Complaint: EYE PROBLEMS HPI: HPI: Patient is a 41 year old female who presents with multiple painful red bumps on her bilateral eyes. Patient states that for about a week, she has had migratory red lumps on her eyelids. She believes them to be styes, she has had 1 in the past. Patient has been using warm compresses without significant relief. 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 She denies any drainage or discharge from either eye, vision changes. Review of Systems: Review of Systems: ROS negative or noncontributory except as mentioned in HPI. Heart Score: C/O Chest Pain: No Allergies: Allergies: Allergies Coded Allergies Type Severity Reaction Last Updated Verified No Known Drug Allergies 11/07/18 No Physical Exam: PE: Constitutional: Well developed, well nourished, no acute distress, non-toxic appearance. HENT: Normocephalic, atraumatic, bilateral external ears normal, nose normal. Eyes: PERRL, EOMI, conjunctiva normal, no discharge; multiple erythematous, fi rm, round and tender lesions noted at the eyelids without fluctuance or periorbital swelling (consistent with hordeolum). Neck: Normal range of motion, no stridor. Skin: Warm, dry, no erythema, no rash. Extremities: No cyanosis, no clubbing, ROM intact, no edema. Neurologic: Alert and oriented x4, normal motor function, normal sensory function, no focal deficits noted. Current Patient Data: Vital Signs: Vital Signs Date Time Temp Pulse Resp B/P (MAP) Pulse Ox O2 Delivery O2 Flow Rate FiO2 10/18/21 11:37 98.2 70 16 132/60 (84) 97 Room Air 98.2 Course & Med Decision Making: Course & Med Decision Making Pertinent Labs and Imaging studies reviewed. (See chart for details) Patient counseled on use of warm compresses for treatment of hordeolum as well as hygiene practices to avoid spread. Patient was also provided with antibiotic drops secondary to multiple styes on bilateral eyes. Return precautions provided. All patient questions were answered. Patient understands and is agreeable to discharge plan. Dragon Disclaimer: Dragon Disclaimer: This electronic medical record was generated, in whole or in part, using a voice recognition dictation system. Departure Departure Impression: Primary Impression: Hordeolum externum (stye) Qualified Codes: H00.019 - Hordeolum externum unspecified eye, unspecified eyelid Disposition: 01 HOME / SELF CARE / HOMELESS Condition: STABLE Referrals: NO PCP (PCP) Patient Instructions: Sty Additional Instructions: EMERGENCY DEPARTMENT GENERAL DISCHARGE INSTRUCTIONS Thank you for coming to [facility] Emergency Department (ED) today and trusting us with you care. We trust that you had a positive experience in our Emergency Department. If you wish to speak to the department management, you may call the director at . YOUR FOLLOW UP INSTRUCTIONS ARE FOLLOWS: 1. Follow up with your primary care doctor. If you do not have a primary doctor, please ask for a resource list of physicians or clinics that may be able to assist you with follow up care. 2. The emergency provider has interpreted your imaging studies, if any were ordered. The radiology cash processing specialist also reviewed them. If there is a change in the findings, you will be notified in 48 hours when at all possible. 3. If a lab test or culture has been done, your results will be reviewed and you will be notified if you need a change in treatment. 4. Follow instructions verbalized to you and refer to the printouts if needed. ADDITIONAL INSTRUCTIONS AND INFORMATION: 1. Your care today has been supervised by a physician who is specially trained in emergency care. Many problems require more than one evaluation for a complete diagnosis and treatment. We recommend that you schedule your follow up appointment as recommended to ensure complete treatment of you illness or injury. If you are unable to obtain follow up care and continue to have a probl em, or if your condition worsens, we recommend that you return to the ED. 2. We are not able to safely determine your condition over the phone nor are we able to give sound medical advice over the phone. For these safety reasons, if you call for medical advice we will ask you to come to the ED for further evaluation. 3. If you have any questions regarding these discharge instructions please call the ED at . SAFETY INFORMATION: In the interest of safety, wellness, and injury prevention; we encourage you to wear your seat belt, if you smoke; quite smoking, and we encourage family to use a protective helmet for bicycling and other sporting events that present an increased risk for head injury. IF YOUR SYMPTOMS WORSEN OR NEW SYMPTOMS DEVELOP, OR YOU HAVE CONCERNS ABOUT YOUR CONDITION; OR IF YOUR CONDITION WORSENS WHILE YOU ARE WAITING FOR YOUR FOLLOW UP APPOINTMENT; EITHER CONTACT YOUR PRIMARY CARE DOCTOR, THE PHYSICIAN WHOSE NAME AND NUMBER YOU WERE GIVEN, OR RETURN TO THE ED IMMEDIATELY. Scripts Polymyxin B Sulf/Trimethoprim (POLYMYXIN B-TMP EYE DROPS) 10 Ml Drops 1 DROP EACHEYE TID for 7 Days, #10 ML 0 Refills Prov: BLAKE RIVERS 10/18/21 BLAKE RIVERS October 18, 2021 11:51
== END 2021-10-18 12:15 | disposition home or self-care (01) ==
LOC: ER 11:21
DX: H00.019 Hordeolum externum unspecified eye, unspecified eyelid (principal)
CPT/HCPCS: 99283